=== PATIENT | female | born 1980 | race Caucasian/White ===

== ENCOUNTER 2018-09-18 09:50 | Outpatient (CLI) | payer OTHER ==
[2018-09-18] MEDS ORDERED: PRENATABS RX T1 EACH PO (20:09)
== END 2018-09-18 13:16 | disposition home or self-care (01) ==
LOC: EDBD 09:50 → OBS/DEL 09:50
DX: O47.1 False labor at or after 37 completed weeks of gestation (principal); Z34.03 Encounter for supervision of normal first pregnancy, third trimester

== ENCOUNTER 2018-09-18 19:33 | Inpatient (IN) | payer OTHER ==
[~2018-09-18] VITALS: Ht 170.2 cm; Wt 180.0 kg
[2018-09-18] MEDS ORDERED: PRENATABS RX T1 EACH PO (20:09)
== END 2018-09-21 10:50 | disposition home or self-care (01) | DRG 807 ==
LOC: LDR 19:33 → OB/GYN 19:33 → EDBD 19:33 → OB/GYN 09-19 07:10
PROVIDERS: ADMIT Specialist
PROC: 10E0XZZ Delivery of Products of Conception, External Approach (ICD-10-PCS; principal; 2018-09-19)
PROC: 0W8NXZZ Division of Female Perineum, External Approach (ICD-10-PCS; 2018-09-19)
PROC: 4A0HXFZ Measurement of Products of Conception, Cardiac Rhythm, External Approach (ICD-10-PCS; 2018-09-19)
DX: O80 Encounter for full-term uncomplicated delivery (principal); Z37.0 Single live birth; Z3A.38 38 weeks gestation of pregnancy

== ENCOUNTER 2020-10-29 05:42 | Inpatient (IN) | payer OTHER ==
[~2020-10-29] VITALS: Ht 170.2 cm; Wt 3.2 kg
[~2020-10-29 05:42] MED LIST: PRENATABS RX T1 EACH PO
[2020-10-29] MEDS ORDERED: FOLIC ACID0.8 M1 PO (08:15)
[2020-10-29] MEDS ORDERED: IRON236 MG PO (08:17)
== END 2020-11-01 14:28 | disposition home or self-care (01) | DRG 786 ==
LOC: OB/GYN 05:42 → LDR 05:42 → O/R 21:24 → OB/GYN 22:47
PROVIDERS: ADMIT Specialist; ATTEND Specialist
PROC: 3E033VJ Introduction of Other Hormone into Peripheral Vein, Percutaneous Approach (ICD-10-PCS; 2020-10-29)
PROC: 4A1HXFZ Monitoring of Products of Conception, Cardiac Rhythm, External Approach (ICD-10-PCS; 2020-10-29)
PROC: 10D00Z1 Extraction of Products of Conception, Low, Open Approach (ICD-10-PCS; principal; 2020-10-29 21:00)
DX: O62.0 Primary inadequate contractions (principal); O60.23X0 Term delivery with preterm labor, third trimester, not applicable or unspecified; Z3A.37 37 weeks gestation of pregnancy; Z37.0 Single live birth; Z20.822 Contact with and (suspected) exposure to COVID-19